=== PATIENT | male | born 1995 ===

== ENCOUNTER 2017-12-23 18:49 | Emergency (ER) | payer SELFPAY ==
[2017-12-23 18:54] VITALS: BP 129/74; PULSE 69; RESP 20; TEMP 98.7; O2SAT 98
--- NOTE | 2017-12-23 19:21 | C.PDOC ---
History Of Present Illness 22 y/o male presents to the ER complaining of midsternal chest pain which has been present for the past 1 year. Patient describes the pain as a mild dull pain. Patient reports that the pain comes and goes in the upper mid sternum and he notes that the pain is worse with with movement. He states that he has been to other hospitals and he had negative X- Rays and he was prescribed Advil. He decided to come to the ER today because he would like to know the reason he is having chest pain. Time Seen by Provider: 12/23/17 18:59 Chief Complaint (Nursing): Chest Pain History Per: Patient History/Exam Limitations: no limitations Onset/Duration Of Symptoms: Days Current Symptoms Are (Timing): Still Present Severity: Moderate Past Medical History Reviewed: Historical Data, Nursing Documentation, Vital Signs Vital Signs: Last Vital Signs Temp 98.7 F 12/23/17 18:53 Pulse 69 12/23/17 18:53 Resp 20 12/23/17 19:47 BP 129/74 12/23/17 18:53 Pulse Ox 98 12/23/17 19:59 - Medical History PMH: No Chronic Diseases Surgical History: No Surg Hx Family History: States: No Known Family Hx - Social History Hx Tobacco Use: Yes Hx Alcohol Use: Yes Hx Substance Use: Yes - Immunization History Hx Tetanus Toxoid Vaccination: No Hx Influenza Vaccination: No Review Of Systems Except As Marked, All Systems Reviewed And Found Negative. Constitutional: Negative for: Fever, Chills Cardiovascular: Positive for: Chest Pain Respiratory: Negative for: Cough, Shortness of Breath Physical Exam - Physical Exam Appears: Non-toxic, No Acute Distress Skin: Normal Color, Warm, Dry Head: Atraumatic, Normacephalic Eye(s): bilateral: Normal Inspection Nose: Normal Oral Mucosa: Moist Neck: Normal ROM, Supple Chest: Symmetrical, Tenderness (mild reproducible chest wall tenderness and mid sternum) Cardiovascular: Rhythm Regular, No Friction Rub, No Murmur, No JVD Respiratory: Normal Breath Sounds, No Rales, No Rhonchi, No Wheezing Gastrointestinal/Abdominal: Soft, No Tenderness Extremity: Bilateral: Atraumatic, Normal ROM Neurological/Psych: Oriented x3, Normal Speech Gait: Steady ED Course And Treatment ECG: Interpreted By Me, Viewed By Me ECG Rhythm: Sinus Rhythm, R BBB (INCOMPLETE) ECG Interpretation: No Acute Changes Rate From EC O2 Sat by Pulse Oximetry: 98 (RA) Pulse Ox Interpretation: Normal Medical Decision Making Medical Decision Making: Impression: chest pain for one year Plan: EKG EKG shows sinus rhythm with incomplete RBBB at 62 bpm, normal axis. Offer chest xray to patient however he refused, he wants tests to see if there is something wrong with his heart. I explained to the patient in young adult male with no significant past medical history or family history of cardiac disease, there is low suspicion for ACS and he can follow up outpatient in the clinic. Recommend analgesic as needed. Pain is likely musculoskeletal or anxiety related. Patient stable for discharge Disposition Counseled Patient/Family Regarding: Studies Performed, Diagnosis, Need For Followup, Rx Given - Disposition Referrals: [facility] [place] [Outside] [facility] [Outside] Disposition: HOME/ ROUTINE Disposition Time: 19:22 Condition: GOOD Additional Instructions: Please follow up outpatient in the clinic for routine physical and further evaluation Take Tylenol or Ibuprofen for pain as needed Prescriptions: Ibuprofen [Motrin] 600 mg PO Q8 #30 tab Instructions: Costochondritis (DC) Forms: [employer] ([place]) - POA Present On Arrival: None - Clinical Impression Clinical Impression: Musculoskeletal chest pain - PA / ORCHID HAND / Resident Statement MD/DO has reviewed & agrees with the documentation as recorded. - Scribe Statement The provider has reviewed the documentation as recorded by the Elizabethibalf Perez Provider Attestation All medical record entries made by the Scribe were at my direction and personally dictated by me. I have reviewed the chart and agree that the record accurately reflects my personal performance of the history, physical exam, medical decision making, and the department course for this patient. I have also personally directed, reviewed, and agree with the discharge instructions and disposition.
--- NOTE | 2017-12-24 17:14 | CARD ---
APPROVED REPORT EKG Measurement Heart [id number] MD [id number] [id number] <Conclusion> Sinus rhythm with sinus arrhythmia with short MD Incomplete right bundle branch block Borderline ECG
== END 2017-12-23 19:47 | disposition home or self-care (01) ==
LOC: C.ER 18:49
DX: R07.89 Other chest pain (principal); Z72.0 Tobacco use